=== PATIENT | female | born 1940 | race Caucasian/White ===

== ENCOUNTER 2020-10-30 13:12 | Emergency (ER) | payer OTHER, MEDICARE ==
[2020-10-30] MEDS ORDERED: Lidocaine 1% w/Epinephrine 1:100K 20 ML VIAL ONE (13:49)
[2020-10-30] MEDS ORDERED: Bacitracin 1 PK ONE (14:35)
== END 2020-10-30 14:52 | disposition home or self-care (01) ==
LOC: CSHERS 13:12
DX: S00.03XA Contusion of scalp, initial encounter (principal); S80.212A Abrasion, left knee, initial encounter; S80.211A Abrasion, right knee, initial encounter; I10 Essential (primary) hypertension; Z86.718 Personal history of other venous thrombosis and embolism; W01.0XXA Fall on same level from slipping, tripping and stumbling without subsequent striking against object, initial encounter
CPT/HCPCS: 12011; 70450; 72125

== ENCOUNTER 2021-07-05 11:22 | Inpatient (IN) | payer MEDICARE, OTHER ==
[2021-07-05 12:20] LABS: Anion Gap 15 mmol/L (10-20); BUN (Urea Nitrogen) 13 mg/dL (9.8-20.1); Calc. Creatinine Clearance 0 mL/min (70-130); Carbon Dioxide 25 mmol/L (23-31); Chloride 104 mmol/L (98-107); Potassium 3.3 mmol/L (3.5-5.1); Sodium 141 mmol/L (136-145)
[2021-07-05 12:21] LABS: ALT (SGPT) 17 U/L (8-55); AST (SGOT) 23 U/L (5-34); Albumin 3.8 g/dL (3.4-4.8); Alkaline Phosphatase 74 U/L (40-110); Bilirubin, Total 0.7 mg/dL (0.2-1.2); Calcium 9.4 mg/dL (7.8-10.44); Globulin 3.1 g/dL (2.4-3.5); Glucose 120 mg/dL (83-110); Protein, Total 6.9 g/dL (5.8-8.1)
[2021-07-05 12:39] LABS: #Basophils 0.1 10x3/uL (0.0-0.2); #Neutrophils 10.6 10x3/uL (1.5-8.4); %Basophils 0.5 % (0.0-2.0); %Eosinophils 0.2 % (0.0-6.0); %Lymphocytes 10.3 % (18.0-47.0); %Monocytes 7.3 % (0.0-10.0); %Neutrophils 81.2 % (40.0-75.0); Hemoglobin 11.3 g/dL (12.0-15.5); Mean Corpuscular HGB CONC 32.2 g/dL (32.0-36.0); Mean Corpuscular Hemoglobin 29.4 pg (27.0-33.0); Mean Corpuscular Volume 91.2 fl (81.6-98.3); Mean Platelet Volume 11.8 fl (7.4-10.4); Platelet Count 167 10x3/uL (150-450); RBC Distribution Width 14.6 % (11.5-14.5); Red Blood Cell (RBC) Count 3.85 10x6/uL (3.90-5.03)
[2021-07-05 12:42] LABS: CKMB 2.5 ng/mL (0-6.6)
[2021-07-05] MEDS ORDERED: Aspirin 325 MG TAB ONE (13:15)
[2021-07-05] MEDS ORDERED: Aspirin Chewable 81 MG TAB ONE (13:19)
[2021-07-05] MEDS ORDERED: Acetaminophen 325 MG TAB PO PRN (14:21)
[2021-07-05] MEDS ORDERED: Acetaminophen 650 MG Suppository PR PRN (14:21)
[2021-07-05 14:23] LABS: SARS-CoV-2 NAA Rapid Test Not Detected (NotDetected)
[2021-07-05 15:24] LABS: Troponin I 0.323 ng/mL (< 0.028)
[2021-07-05 17:16] LABS: Troponin I 0.351 ng/mL (< 0.028)
[2021-07-05] MEDS ORDERED: Potassium Chloride 20 MEQ TAB PO SCH (18:00)
[2021-07-05] MEDS ORDERED: Furosemide 40 MG/4 ML VIAL SLOW IVP SCH (18:00)
[2021-07-05 18:02] VITALS: BMI 40.6
[2021-07-05] MEDS ORDERED: FLU VACC QS2021-22(65YR UP)/PF 240 MCG/0.7 ML SYRINGE IM ONE (18:15)
[2021-07-05] MEDS ORDERED: Atorvastatin Calcium 10 MG TAB PO SCH (21:00)
[2021-07-05] MEDS ORDERED: Pramipexole Di-HCl 0.25 MG TAB PO SCH (22:15)
[2021-07-06 05:13] LABS: #Basophils 0.1 10x3/uL (0.0-0.2); #Eosinphils 0.1 10x3/uL (0.0-0.5); #Monocytes 0.9 10x3/uL (0.0-1.1); #Neutrophils 5.2 10x3/uL (1.5-8.4); %Basophils 0.6 % (0.0-2.0); %Eosinophils 1.6 % (0.0-6.0); %Lymphocytes 21.2 % (18.0-47.0); %Monocytes 11.2 % (0.0-10.0); %Neutrophils 64.9 % (40.0-75.0); Mean Corpuscular HGB CONC 31.8 g/dL (32.0-36.0); Mean Corpuscular Hemoglobin 29.1 pg (27.0-33.0); Mean Corpuscular Volume 91.3 fl (81.6-98.3); Mean Platelet Volume 12.2 fl (7.4-10.4); Platelet Count 158 10x3/uL (150-450); RBC Distribution Width 14.7 % (11.5-14.5); Red Blood Cell (RBC) Count 3.44 10x6/uL (3.90-5.03); White Blood Cell (WBC) Count 8.1 10x3/uL (3.5-10.5)
[2021-07-06 05:28] LABS: Anion Gap 14 mmol/L (10-20); BUN (Urea Nitrogen) 12 mg/dL (9.8-20.1); Calc. Creatinine Clearance 57 mL/min (70-130); Calcium 8.9 mg/dL (7.8-10.44); Carbon Dioxide 29 mmol/L (23-31); Chloride 103 mmol/L (98-107); Glucose 101 mg/dL (83-110); Sodium 143 mmol/L (136-145)
[2021-07-06] MEDS ORDERED: Furosemide 40 MG/4 ML VIAL SLOW IVP SCH (06:00)
[2021-07-06] MEDS ORDERED: Aspirin 81 mg Enteric Coated Tablet PO SCH (09:00)
[2021-07-06] MEDS ORDERED: Communication Order-Pharmacy FS SCH (11:00)
[2021-07-06] MEDS ORDERED: ALPRAZolam 0.25 MG TAB PO PRN (11:07)
[2021-07-06] MEDS ORDERED: Carvedilol 3.125 MG TAB PO SCH ×2 (12:00→17:00)
[2021-07-06] MEDS ORDERED: Nitroglycerin 50 MG/250 ML BOT 250 ML ONE (13:15)
[2021-07-06] MEDS ORDERED: Heparin 10,000 UNITS/ 10 ML VIAL ONE (13:15)
[2021-07-06] MEDS ORDERED: Lidocaine 1% PF 5 ML VIAL ONE (13:15)
[2021-07-06] MEDS ORDERED: Adenosine 6 MG/2 ML VIAL ONE (13:16)
[2021-07-06] MEDS ORDERED: Verapamil 5 MG/2 ML VIAL ONE (13:16)
[2021-07-06] MEDS ORDERED: Bivalirudin 250 MG VIAL ONE (13:17)
[2021-07-06] MEDS ORDERED: Fentanyl 100 MCG/2 ML VIAL ONE (14:19)
[2021-07-06] MEDS ORDERED: Midazolam HCl 2 mg/2 ml Vial ONE (14:20)
[2021-07-06] MEDS ORDERED: Nitroglycerin 0.4 MG TAB (25 Tab Bottle) SL PRN (14:52)
[2021-07-06] MEDS ORDERED: Acetaminophen/Codeine 30-300mg Tablet PO PRN ×2 (14:52)
[2021-07-06] MEDS ORDERED: Sodium Chloride 0.9% 200 ML IV PRN (14:52)
[2021-07-06] MEDS ORDERED: Potassium Chloride 20 MEQ TAB PO SCH (15:00)
[2021-07-06 18:04] LABS: Magnesium 1.8 mg/dL (1.6-2.6)
[2021-07-06 19:55] VITALS: TEMP 98.5
[2021-07-06 19:59] VITALS: BP 145/61
[2021-07-06] MEDS ORDERED: Atorvastatin Calcium 40 MG TAB PO SCH (21:00)
[2021-07-06] MEDS ORDERED: Valsartan 80 MG TAB PO SCH (21:00)
[2021-07-06] MEDS ORDERED: Pramipexole Di-HCl 0.25 MG TAB PO SCH (21:00)
[2021-07-07] MEDS ORDERED: Potassium Chloride 20 MEQ TAB PO SCH (08:00)
[2021-07-07] MEDS ORDERED: Furosemide 20 MG TAB PO SCH (09:00)
[2021-07-07] MEDS ORDERED: Escitalopram Oxalate 10 mg Tablet PO SCH (09:00)
== END 2021-07-06 19:25 | disposition short-term general hospital (02) | DRG 280 ==
LOC: CSHERS 11:22 → CSHTELE 17:13
PROVIDERS: ADMIT Hospitalist; ATTEND Hospitalist
PROC: 4A023N7 Measurement of Cardiac Sampling and Pressure, Left Heart, Percutaneous Approach (ICD-10-PCS; principal; 2021-07-06)
PROC: B2111ZZ Fluoroscopy of Multiple Coronary Arteries using Low Osmolar Contrast (ICD-10-PCS; 2021-07-06)
PROC: B2151ZZ Fluoroscopy of Left Heart using Low Osmolar Contrast (ICD-10-PCS; 2021-07-06)
DX: I11.0 Hypertensive heart disease with heart failure (principal); I50.33 Acute on chronic diastolic (congestive) heart failure; I21.4 Non-ST elevation (NSTEMI) myocardial infarction; Z68.41 Body mass index [BMI] 40.0-44.9, adult; Z20.822 Contact with and (suspected) exposure to COVID-19; E87.6 Hypokalemia; I48.91 Unspecified atrial fibrillation; I25.10 Atherosclerotic heart disease of native coronary artery without angina pectoris; K21.9 Gastro-esophageal reflux disease without esophagitis; I73.9 Peripheral vascular disease, unspecified; E66.01 Morbid (severe) obesity due to excess calories; E78.5 Hyperlipidemia, unspecified; Z88.2 Allergy status to sulfonamides; Z79.82 Long term (current) use of aspirin; Z79.899 Other long term (current) drug therapy; Z86.718 Personal history of other venous thrombosis and embolism; Z95.5 Presence of coronary angioplasty implant and graft; Z90.49 Acquired absence of other specified parts of digestive tract; Z90.710 Acquired absence of both cervix and uterus; Z90.89 Acquired absence of other organs
CPT/HCPCS: 36415; 71045; 80048; 80053; 82553; 83735; 83880; 84443; 84484; 85025; 93005; 93459; 94760; 99152; 99153; J0153; J0583; J1644; J1940; J2250; J3010; U0002

== ENCOUNTER 2022-09-11 20:21 | Inpatient (IN) | payer MEDICARE, OTHER ==
[2022-09-11] MEDS ORDERED: Nitroglycerin 2% Ointment 1 INCH/1 GM Packet ONE (21:23)
[2022-09-11 21:28] LABS: #Eosinphils 0.1 10x3/uL (0.0-0.5); #Monocytes 0.8 10x3/uL (0.0-1.1); %Basophils 0.5 % (0.0-2.0); %Eosinophils 0.7 % (0.0-6.0); %Lymphocytes 19.7 % (18.0-47.0); %Monocytes 9.2 % (0.0-10.0); %Neutrophils 69.6 % (40.0-75.0); Hemoglobin 9.9 g/dL (12.0-15.5); Mean Corpuscular HGB CONC 31.9 g/dL (32.0-36.0); Mean Corpuscular Hemoglobin 32.4 pg (27.0-33.0); Mean Corpuscular Volume 101.3 fl (81.6-98.3); Platelet Count 161 10x3/uL (150-450); RBC Distribution Width 14.3 % (11.5-14.5); Red Blood Cell (RBC) Count 3.06 10x6/uL (3.90-5.03); White Blood Cell (WBC) Count 8.7 10x3/uL (3.5-10.5)
[2022-09-11 21:33] LABS: ALT (SGPT) 22 U/L (8-55); AST (SGOT) 34 U/L (5-34); Albumin 3.4 g/dL (3.4-4.8); Alkaline Phosphatase 83 U/L (40-110); Anion Gap 13 mmol/L (10-20); BUN (Urea Nitrogen) 25 mg/dL (9.8-20.1); Bilirubin, Total 0.3 mg/dL (0.2-1.2); Calc. Creatinine Clearance 0 mL/min (70-130); Calcium 8.7 mg/dL (7.8-10.44); Carbon Dioxide 22 mmol/L (23-31); Chloride 110 mmol/L (98-107); Estimated GFR 30; Globulin 2.3 g/dL (2.4-3.5); Glucose 96 mg/dL (83-110); Potassium 4.3 mmol/L (3.5-5.1); Protein, Total 5.7 g/dL (5.8-8.1); Sodium 141 mmol/L (136-145)
[2022-09-11] MEDS ORDERED: Furosemide 40 MG/4 ML VIAL ONE (22:16)
[2022-09-11] MEDS ORDERED: Guaifenesin DM 100-10/5 ML UDCUP PO PRN (22:52)
[2022-09-11] MEDS ORDERED: Senokot S 8.6-50 MG TAB PO PRN (22:52)
[2022-09-11] MEDS ORDERED: Calcium Carbonate 500 MG ChewTAB PO PRN (22:52)
[2022-09-11] MEDS ORDERED: Ondansetron PF 4 MG/2 ML Vial IVP PRN (22:52)
[2022-09-11] MEDS ORDERED: Melatonin 3 MG TAB PO PRN (22:55)
[2022-09-12 01:21] LABS: SARS-CoV-2 NAA Rapid Test Not Detected (NotDetected)
[2022-09-12 03:52] LABS: Anion Gap 13 mmol/L (10-20); BUN (Urea Nitrogen) 28 mg/dL (9.8-20.1); Calc. Creatinine Clearance 29 mL/min (70-130); Calcium 8.9 mg/dL (7.8-10.44); Carbon Dioxide 24 mmol/L (23-31); Chloride 109 mmol/L (98-107); Estimated GFR 33; Glucose 89 mg/dL (83-110); Potassium 3.9 mmol/L (3.5-5.1); Sodium 142 mmol/L (136-145)
[2022-09-12 03:53] LABS: #Basophils 0.1 10x3/uL (0.0-0.2); #Eosinphils 0.1 10x3/uL (0.0-0.5); #Monocytes 0.9 10x3/uL (0.0-1.1); %Basophils 0.6 % (0.0-2.0); %Eosinophils 0.7 % (0.0-6.0); %Lymphocytes 19.9 % (18.0-47.0); %Monocytes 9.8 % (0.0-10.0); %Neutrophils 68.8 % (40.0-75.0); Hemoglobin 9.5 g/dL (12.0-15.5); Mean Corpuscular HGB CONC 32.5 g/dL (32.0-36.0); Mean Corpuscular Hemoglobin 32.5 pg (27.0-33.0); Mean Platelet Volume 11.7 fl (7.4-10.4); Platelet Count 158 10x3/uL (150-450); RBC Distribution Width 14.3 % (11.5-14.5); Red Blood Cell (RBC) Count 2.92 10x6/uL (3.90-5.03); White Blood Cell (WBC) Count 8.7 10x3/uL (3.5-10.5)
[2022-09-12] MEDS ORDERED: Furosemide 20 MG/2 ML VIAL SLOW IVP SCH (06:00)
[2022-09-12] MEDS ORDERED: hydrALAZINE 20 MG/ML VIAL SLOW IVP PRN (08:23)
[2022-09-12] MEDS ORDERED: Lisinopril 5 MG TAB PO SCH (09:00)
[2022-09-12] MEDS: Carvedilol 6.25 MG TAB PO SCH ×2 (10:09→18:04)
[2022-09-12] MEDS: Furosemide 40 MG TAB PO SCH ×2 (10:10→13:40)
[2022-09-12] MEDS: Ferrous Sulfate 325 MG TAB PO SCH ×2 (10:10→18:04)
[2022-09-12] MEDS: Cyanocobalamin (Vitamin B-12) 1,000 MCG TAB PO SCH (10:10)
[2022-09-12] MEDS: hydrALAZINE 25 MG TAB PO SCH ×2 (10:10→20:30)
[2022-09-12] MEDS: Escitalopram Oxalate 20 mg Tablet PO SCH (10:11)
[2022-09-12] MEDS: Polyethylene Glycol 3350 17 GM Packet PO SCH (10:11)
[2022-09-12] MEDS: Folic Acid 1 MG TAB PO SCH (10:11)
[2022-09-12] MEDS: Clopidogrel Bisulfate 75 MG TAB PO SCH (10:11)
[2022-09-12] MEDS ORDERED: Amoxicillin/Potassium Clav 875 MG TAB PO SCH (11:15)
[2022-09-12] MEDS: ALPRAZolam 0.25 MG TAB PO PRN (20:30)
[2022-09-12] MEDS: Pramipexole Di-HCl 1 MG TAB PO SCH (20:30)
[2022-09-12] MEDS: Acetaminophen 325 MG TAB PO PRN (20:31)
[2022-09-12] MEDS: Amoxicillin/Potassium Clav 500 MG TAB PO SCH (20:31)
[2022-09-12] MEDS: Atorvastatin Calcium 40 MG TAB PO SCH (20:31)
[2022-09-13 05:23] LABS: #Eosinphils 0.1 10x3/uL (0.0-0.5); #Monocytes 0.7 10x3/uL (0.0-1.1); %Basophils 0.5 % (0.0-2.0); %Eosinophils 1.2 % (0.0-6.0); %Lymphocytes 21.5 % (18.0-47.0); %Monocytes 9.3 % (0.0-10.0); %Neutrophils 67.2 % (40.0-75.0); Anion Gap 15 mmol/L (10-20); BUN (Urea Nitrogen) 42 mg/dL (9.8-20.1); Calc. Creatinine Clearance 26 mL/min (70-130); Calcium 8.8 mg/dL (7.8-10.44); Carbon Dioxide 23 mmol/L (23-31); Chloride 105 mmol/L (98-107); Estimated GFR 29; Glucose 91 mg/dL (83-110); Mean Corpuscular HGB CONC 33.1 g/dL (32.0-36.0); Mean Corpuscular Hemoglobin 32.6 pg (27.0-33.0); Mean Corpuscular Volume 98.4 fl (81.6-98.3); Mean Platelet Volume 12.2 fl (7.4-10.4); Platelet Count 139 10x3/uL (150-450); Potassium 4.1 mmol/L (3.5-5.1); RBC Distribution Width 14.1 % (11.5-14.5); Red Blood Cell (RBC) Count 3.07 10x6/uL (3.90-5.03); Sodium 139 mmol/L (136-145); White Blood Cell (WBC) Count 7.4 10x3/uL (3.5-10.5)
[2022-09-13 06:35] VITALS: BMI 34.1
[2022-09-13] MEDS: Carvedilol 6.25 MG TAB PO SCH ×2 (08:44→18:16)
[2022-09-13] MEDS: hydrALAZINE 25 MG TAB PO SCH ×3 (08:45→21:28)
[2022-09-13] MEDS: Furosemide 40 MG TAB PO SCH ×2 (08:45→15:44)
[2022-09-13] MEDS: Escitalopram Oxalate 20 mg Tablet PO SCH (08:45)
[2022-09-13] MEDS: Cyanocobalamin (Vitamin B-12) 1,000 MCG TAB PO SCH (08:45)
[2022-09-13] MEDS: Clopidogrel Bisulfate 75 MG TAB PO SCH (08:45)
[2022-09-13] MEDS: Folic Acid 1 MG TAB PO SCH (08:45)
[2022-09-13] MEDS: Ferrous Sulfate 325 MG TAB PO SCH ×2 (08:45→18:16)
[2022-09-13] MEDS: Amoxicillin/Potassium Clav 500 MG TAB PO SCH ×2 (08:45→21:29)
[2022-09-13] MEDS: Polyethylene Glycol 3350 17 GM Packet PO SCH (08:46)
[2022-09-13] MEDS ORDERED: Amlodipine 5 MG TAB PO SCH (09:00)
[2022-09-13] MEDS: Pramipexole Di-HCl 1 MG TAB PO SCH (21:26)
[2022-09-13] MEDS: Acetaminophen 325 MG TAB PO PRN (21:28)
[2022-09-13] MEDS: Atorvastatin Calcium 40 MG TAB PO SCH (21:29)
[2022-09-13] MEDS: ALPRAZolam 0.25 MG TAB PO PRN (23:06)
[2022-09-14 06:25] LABS: #Basophils 0.1 10x3/uL (0.0-0.2); #Eosinphils 0.1 10x3/uL (0.0-0.5); #Monocytes 0.7 10x3/uL (0.0-1.1); #Neutrophils 5.1 10x3/uL (1.5-8.4); %Basophils 0.6 % (0.0-2.0); %Eosinophils 1.4 % (0.0-6.0); %Lymphocytes 23.9 % (18.0-47.0); %Monocytes 9.2 % (0.0-10.0); %Neutrophils 64.6 % (40.0-75.0); Hemoglobin 10.4 g/dL (12.0-15.5); Mean Corpuscular HGB CONC 32.4 g/dL (32.0-36.0); Mean Corpuscular Hemoglobin 32.2 pg (27.0-33.0); Mean Corpuscular Volume 99.4 fl (81.6-98.3); Mean Platelet Volume 12.5 fl (7.4-10.4); Platelet Count 136 10x3/uL (150-450); RBC Distribution Width 14.2 % (11.5-14.5); Red Blood Cell (RBC) Count 3.23 10x6/uL (3.90-5.03); White Blood Cell (WBC) Count 7.9 10x3/uL (3.5-10.5)
[2022-09-14 06:40] LABS: ALT (SGPT) 15 U/L (8-55); AST (SGOT) 26 U/L (5-34); Albumin 3.3 g/dL (3.4-4.8); Alkaline Phosphatase 76 U/L (40-110); Anion Gap 16 mmol/L (10-20); BUN (Urea Nitrogen) 46 mg/dL (9.8-20.1); Bilirubin, Total 0.3 mg/dL (0.2-1.2); Calc. Creatinine Clearance 25 mL/min (70-130); Calcium 9.1 mg/dL (7.8-10.44); Carbon Dioxide 22 mmol/L (23-31); Chloride 107 mmol/L (98-107); Estimated GFR 28; Globulin 2.8 g/dL (2.4-3.5); Glucose 92 mg/dL (83-110); Magnesium 2.3 mg/dL (1.6-2.6); Potassium 3.9 mmol/L (3.5-5.1); Protein, Total 6.1 g/dL (5.8-8.1); Sodium 141 mmol/L (136-145)
[2022-09-14 06:42] LABS: Phosphorus 3.3 mg/dL (2.3-4.7)
[2022-09-14] MEDS: Clopidogrel Bisulfate 75 MG TAB PO SCH (08:27)
[2022-09-14] MEDS: Carvedilol 6.25 MG TAB PO SCH (08:27)
[2022-09-14] MEDS: hydrALAZINE 25 MG TAB PO SCH (08:27)
[2022-09-14] MEDS: Furosemide 40 MG TAB PO SCH (08:27)
[2022-09-14] MEDS: Folic Acid 1 MG TAB PO SCH (08:28)
[2022-09-14] MEDS: Escitalopram Oxalate 20 mg Tablet PO SCH (08:28)
[2022-09-14] MEDS: Ferrous Sulfate 325 MG TAB PO SCH (08:28)
[2022-09-14] MEDS: Cyanocobalamin (Vitamin B-12) 1,000 MCG TAB PO SCH (08:28)
[2022-09-14] MEDS: Polyethylene Glycol 3350 17 GM Packet PO SCH (08:29)
[2022-09-14] MEDS: Amoxicillin/Potassium Clav 500 MG TAB PO SCH (08:29)
[2022-09-14] MEDS: Acetaminophen 325 MG TAB PO PRN (08:40)
[2022-09-14] MEDS ORDERED: Amlodipine 10 MG TAB PO SCH (09:00)
[2022-09-14 11:58] VITALS: TEMP 97.6
[2022-09-14] MEDS ORDERED: Albumin 25% 25 GM/100 ML BOT IVPB SCH (12:00)
[2022-09-14 13:47] VITALS: BP 151/52
[2022-09-15] MEDS ORDERED: Furosemide 40 MG TAB PO SCH (07:30)
== END 2022-09-14 15:15 | DRG 291 ==
LOC: CSHERS 20:21 → CSHTELE 23:30
PROVIDERS: ADMIT Student in an Organized Health Care Education/Training Program; ATTEND Internal Medicine
DX: I13.0 Hypertensive heart and chronic kidney disease with heart failure and stage 1 through stage 4 chronic kidney disease, or unspecified chronic kidney disease (principal); I50.43 Acute on chronic combined systolic (congestive) and diastolic (congestive) heart failure; N17.0 Acute kidney failure with tubular necrosis; I73.9 Peripheral vascular disease, unspecified; K21.9 Gastro-esophageal reflux disease without esophagitis; G25.81 Restless legs syndrome; I48.0 Paroxysmal atrial fibrillation; I16.0 Hypertensive urgency; E03.9 Hypothyroidism, unspecified; D63.1 Anemia in chronic kidney disease; N18.30 Chronic kidney disease, stage 3 unspecified; F41.9 Anxiety disorder, unspecified; F32.A Depression, unspecified; Z95.5 Presence of coronary angioplasty implant and graft; Z95.1 Presence of aortocoronary bypass graft; Z98.890 Other specified postprocedural states; Z79.899 Other long term (current) drug therapy; Z88.2 Allergy status to sulfonamides; Z88.8 Allergy status to other drugs, medicaments and biological substances; Z95.820 Peripheral vascular angioplasty status with implants and grafts; Z90.710 Acquired absence of both cervix and uterus; Z90.89 Acquired absence of other organs; Z82.49 Family history of ischemic heart disease and other diseases of the circulatory system; Z90.49 Acquired absence of other specified parts of digestive tract; Z86.718 Personal history of other venous thrombosis and embolism; Z20.822 Contact with and (suspected) exposure to COVID-19
CPT/HCPCS: 36415; 71045; 76770; 80048; 80053; 83735; 83880; 84100; 84443; 84484; 85025; 93005; 93306; 93970; 96374; J1650; J1940; P9047; U0002

== ENCOUNTER 2022-09-29 15:27 | Inpatient (IN) | payer OTHER ==
[2022-09-29 16:48] LABS: #Eosinphils 0.1 10x3/uL (0.0-0.5); #Monocytes 0.5 10x3/uL (0.0-1.1); #Neutrophils 5.1 10x3/uL (1.5-8.4); %Basophils 0.6 % (0.0-2.0); %Eosinophils 0.9 % (0.0-6.0); %Monocytes 7.7 % (0.0-10.0); %Neutrophils 74.4 % (40.0-75.0); Hemoglobin 10.1 g/dL (12.0-15.5); Mean Corpuscular HGB CONC 32.2 g/dL (32.0-36.0); Mean Corpuscular Hemoglobin 32.6 pg (27.0-33.0); Mean Corpuscular Volume 101.3 fl (81.6-98.3); Mean Platelet Volume 13.1 fl (7.4-10.4); Platelet Count 114 10x3/uL (150-450); RBC Distribution Width 14.6 % (11.5-14.5); White Blood Cell (WBC) Count 6.9 10x3/uL (3.5-10.5)
[2022-09-29 16:59] LABS: ALT (SGPT) 25 U/L (8-55); AST (SGOT) 34 U/L (5-34); Albumin 3.8 g/dL (3.4-4.8); Alkaline Phosphatase 76 U/L (40-110); Anion Gap 18 mmol/L (10-20); BUN (Urea Nitrogen) 42 mg/dL (9.8-20.1); Bilirubin, Total 0.3 mg/dL (0.2-1.2); Calc. Creatinine Clearance 0 mL/min (70-130); Calcium 9.1 mg/dL (7.8-10.44); Carbon Dioxide 20 mmol/L (23-31); Chloride 109 mmol/L (98-107); Estimated GFR 21; Globulin 3.1 g/dL (2.4-3.5); Glucose 123 mg/dL (83-110); Magnesium 2.6 mg/dL (1.6-2.6); Potassium 5.5 mmol/L (3.5-5.1); Protein, Total 6.9 g/dL (5.8-8.1); Sodium 141 mmol/L (136-145)
[2022-09-29 17:38] LABS: Bilirubin Neg (Negative); Blood, Urine Negative (Negative); Clarity Clear (Clear); Glucose, Urine (Dipstick) Normal (Negative); Ketone, Urine Negative (Negative); Leukocyte Negative (Negative); Nitrite Negative (Negative); Protein, Urine (Dipstick) Negative (Neg-Trace); Urobilinogen Normal mg/dL (Less than 2)
[2022-09-29] MEDS ORDERED: Calcium Carbonate 500 MG ChewTAB PO PRN (20:16)
[2022-09-29] MEDS ORDERED: Nitroglycerin 0.4 MG TAB (25 Tab Bottle) SL PRN (20:16)
[2022-09-29 20:38] LABS: Hemoglobin 10.2 g/dL (12.0-15.5); Platelet Count 122 10x3/uL (150-450)
[2022-09-29 20:56] LABS: Troponin I 0.024 ng/mL (< 0.028)
[2022-09-29] MEDS ORDERED: ACETAMINOPHEN 650 MG PO SCH (21:00)
[2022-09-29] MEDS ORDERED: Sodium Chloride 0.9% 1,000 ML IV SCH (21:00)
[2022-09-29] MEDS: Acetaminophen 325 MG TAB PO PRN (21:05)
[2022-09-29] MEDS: Pramipexole Di-HCl 0.25 MG TAB PO SCH (21:05)
[2022-09-29] MEDS: Atorvastatin Calcium 40 MG TAB PO SCH (21:06)
[2022-09-29] MEDS: hydrALAZINE 25 MG TAB PO SCH (21:06)
[2022-09-29] MEDS: ALPRAZolam 0.25 MG TAB PO SCH (21:07)
[2022-09-29] MEDS: Melatonin 3 MG TAB PO PRN (21:07)
[2022-09-29 21:09] VITALS: BMI 33.0
[2022-09-29] MEDS ORDERED: Heparin 10,000 UNITS/ 10 ML VIAL SLOW IVP SCH (22:00)
[2022-09-29] MEDS: Heparin 25,000 units/D5W 500 ML IVPB SCH (23:02)
[2022-09-30 00:20] LABS: Troponin I 0.028 ng/mL (< 0.028)
[2022-09-30 02:45] LABS: #Eosinphils 0.1 10x3/uL (0.0-0.5); #Monocytes 0.7 10x3/uL (0.0-1.1); %Basophils 0.5 % (0.0-2.0); %Eosinophils 1.3 % (0.0-6.0); %Lymphocytes 20.3 % (18.0-47.0); %Monocytes 9.8 % (0.0-10.0); %Neutrophils 67.8 % (40.0-75.0); Hemoglobin 9.1 g/dL (12.0-15.5); Mean Corpuscular HGB CONC 32.3 g/dL (32.0-36.0); Mean Corpuscular Hemoglobin 32.6 pg (27.0-33.0); Mean Corpuscular Volume 101.1 fl (81.6-98.3); Platelet Count 105 10x3/uL (150-450); RBC Distribution Width 14.5 % (11.5-14.5); Red Blood Cell (RBC) Count 2.79 10x6/uL (3.90-5.03); White Blood Cell (WBC) Count 7.4 10x3/uL (3.5-10.5)
[2022-09-30 02:53] LABS: Anion Gap 14 mmol/L (10-20); BUN (Urea Nitrogen) 42 mg/dL (9.8-20.1); Calc. Creatinine Clearance 22 mL/min (70-130); Calcium 8.7 mg/dL (7.8-10.44); Carbon Dioxide 22 mmol/L (23-31); Chloride 111 mmol/L (98-107); Estimated GFR 24; Glucose 113 mg/dL (83-110); Sodium 143 mmol/L (136-145)
[2022-09-30 03:11] LABS: Iron 55 ug/dL (50-170); Iron Binding Capacity, Total 220 mcg/dL (265-497)
[2022-09-30 03:12] LABS: Thyroid Stimulating Hormone 1.7034 uIU/mL (0.35-4.94)
[2022-09-30 03:50] LABS: PTT Greater than 139.0 sec (22.0-33.0)
[2022-09-30 04:34] LABS: Platelet Morphology Comment Appears Decreased
[2022-09-30 04:35] LABS: Large Platelets SLIGHT
[2022-09-30 04:36] LABS: Anisocytosis SLIGHT = 6-15 cells (100X) (0-5/hpf); Macrocytosis SLIGHT = 6-15 cells (100X) (0-5/hpf); Microcytosis SLIGHT = 6-15 cells (100X) (0-5/hpf)
[2022-09-30] MEDS ORDERED: traMADol HCl 50 MG TAB PO SCH (05:00)
[2022-09-30 05:34] LABS: PTT Greater than 139.0 sec (22.0-33.0)
[2022-09-30] MEDS: HYDROcodone/Acetaminophen 5/325 mg Tablet PO PRN ×3 (10:06→20:36)
[2022-09-30] MEDS: Fluticasone Propionate Nasal Spray 16 gm Bottle NASAL SCH (10:06)
[2022-09-30] MEDS: hydrALAZINE 25 MG TAB PO SCH ×3 (10:07→20:36)
[2022-09-30] MEDS: Primidone 50 MG TAB PO SCH (10:07)
[2022-09-30] MEDS: Folic Acid 1 MG TAB PO SCH (10:08)
[2022-09-30] MEDS: Carvedilol 6.25 MG TAB PO SCH ×2 (10:08→17:14)
[2022-09-30] MEDS: Amlodipine 10 MG TAB PO SCH (10:09)
[2022-09-30] MEDS: Ferrous Sulfate 325 MG TAB PO SCH ×2 (10:09→19:41)
[2022-09-30] MEDS: Clopidogrel Bisulfate 75 MG TAB PO SCH (10:09)
[2022-09-30] MEDS: Cyanocobalamin (Vitamin B-12) 1,000 MCG TAB PO SCH (10:09)
[2022-09-30] MEDS: Polyethylene Glycol 3350 17 GM Packet PO SCH (11:29)
[2022-09-30] MEDS: Escitalopram Oxalate 10 mg Tablet PO SCH (12:24)
[2022-09-30] MEDS: ALPRAZolam 0.25 MG TAB PO SCH (20:35)
[2022-09-30] MEDS: Melatonin 3 MG TAB PO PRN (20:36)
[2022-09-30] MEDS: Pramipexole Di-HCl 0.25 MG TAB PO SCH (20:36)
[2022-09-30] MEDS: Atorvastatin Calcium 40 MG TAB PO SCH (20:36)
[2022-10-01 04:46] LABS: Hemoglobin 9.2 g/dL (12.0-15.5); Mean Corpuscular HGB CONC 31.9 g/dL (32.0-36.0); Mean Corpuscular Hemoglobin 32.6 pg (27.0-33.0); Mean Corpuscular Volume 102.1 fl (81.6-98.3); Platelet Count 109 10x3/uL (150-450); RBC Distribution Width 14.6 % (11.5-14.5); Red Blood Cell (RBC) Count 2.82 10x6/uL (3.90-5.03); White Blood Cell (WBC) Count 6.5 10x3/uL (3.5-10.5)
[2022-10-01 04:58] LABS: Anion Gap 13 mmol/L (10-20); BUN (Urea Nitrogen) 36 mg/dL (9.8-20.1); Calc. Creatinine Clearance 26 mL/min (70-130); Calcium 8.9 mg/dL (7.8-10.44); Carbon Dioxide 22 mmol/L (23-31); Chloride 111 mmol/L (98-107); Estimated GFR 29; Glucose 87 mg/dL (83-110); Sodium 142 mmol/L (136-145)
[2022-10-01] MEDS: HYDROcodone/Acetaminophen 5/325 mg Tablet PO PRN ×4 (06:16→22:11)
[2022-10-01] MEDS ORDERED: SELENIUM SULFIDE TOP SCH (09:00)
[2022-10-01] MEDS: Carvedilol 6.25 MG TAB PO SCH ×2 (09:20→17:08)
[2022-10-01] MEDS: hydrALAZINE 25 MG TAB PO SCH ×3 (10:00→22:10)
[2022-10-01] MEDS: Ferrous Sulfate 325 MG TAB PO SCH ×2 (10:03→17:08)
[2022-10-01] MEDS: Primidone 50 MG TAB PO SCH (10:03)
[2022-10-01] MEDS: Amlodipine 10 MG TAB PO SCH (10:04)
[2022-10-01] MEDS: Folic Acid 1 MG TAB PO SCH (10:04)
[2022-10-01] MEDS: Cyanocobalamin (Vitamin B-12) 1,000 MCG TAB PO SCH (10:05)
[2022-10-01] MEDS: Escitalopram Oxalate 10 mg Tablet PO SCH (10:05)
[2022-10-01] MEDS: Clopidogrel Bisulfate 75 MG TAB PO SCH (10:05)
[2022-10-01] MEDS: Fluticasone Propionate Nasal Spray 16 gm Bottle NASAL SCH (10:06)
[2022-10-01] MEDS: Polyethylene Glycol 3350 17 GM Packet PO SCH (10:07)
[2022-10-01] MEDS: Heparin 25,000 units/D5W 500 ML IVPB SCH (18:50)
[2022-10-01 20:20] LABS: Hemoglobin 9.4 g/dL (12.0-15.5); Platelet Count 121 10x3/uL (150-450)
[2022-10-01] MEDS: ALPRAZolam 0.25 MG TAB PO SCH (22:09)
[2022-10-01] MEDS: Melatonin 3 MG TAB PO PRN (22:10)
[2022-10-01] MEDS: Atorvastatin Calcium 40 MG TAB PO SCH (22:10)
[2022-10-01] MEDS: Pramipexole Di-HCl 0.25 MG TAB PO SCH (22:11)
[2022-10-02] MEDS: HYDROcodone/Acetaminophen 5/325 mg Tablet PO PRN ×2 (03:14→08:46)
[2022-10-02 04:50] LABS: Anion Gap 13 mmol/L (10-20); BUN (Urea Nitrogen) 38 mg/dL (9.8-20.1); Calc. Creatinine Clearance 26 mL/min (70-130); Calcium 8.9 mg/dL (7.8-10.44); Carbon Dioxide 21 mmol/L (23-31); Chloride 110 mmol/L (98-107); Estimated GFR 29; Glucose 90 mg/dL (83-110); Potassium 4.6 mmol/L (3.5-5.1); Sodium 139 mmol/L (136-145)
[2022-10-02] MEDS: Fluticasone Propionate Nasal Spray 16 gm Bottle NASAL SCH (08:42)
[2022-10-02] MEDS: Primidone 50 MG TAB PO SCH (08:44)
[2022-10-02] MEDS: hydrALAZINE 25 MG TAB PO SCH ×3 (08:44→21:17)
[2022-10-02] MEDS: Escitalopram Oxalate 10 mg Tablet PO SCH (08:45)
[2022-10-02] MEDS: Folic Acid 1 MG TAB PO SCH (08:45)
[2022-10-02] MEDS: Cyanocobalamin (Vitamin B-12) 1,000 MCG TAB PO SCH (08:45)
[2022-10-02] MEDS: Ferrous Sulfate 325 MG TAB PO SCH ×2 (08:45→18:04)
[2022-10-02] MEDS: Amlodipine 10 MG TAB PO SCH (08:46)
[2022-10-02] MEDS: Clopidogrel Bisulfate 75 MG TAB PO SCH (08:46)
[2022-10-02] MEDS: Carvedilol 6.25 MG TAB PO SCH ×2 (08:46→18:04)
[2022-10-02] MEDS: Polyethylene Glycol 3350 17 GM Packet PO SCH (08:47)
[2022-10-02] MEDS: ALPRAZolam 0.25 MG TAB PO SCH (21:17)
[2022-10-02] MEDS: Apixaban 5 MG TAB PO SCH (21:17)
[2022-10-02] MEDS: Pramipexole Di-HCl 0.25 MG TAB PO SCH (21:18)
[2022-10-02] MEDS: Atorvastatin Calcium 40 MG TAB PO SCH (21:18)
[2022-10-03 04:20] LABS: Hemoglobin 9.1 g/dL (12.0-15.5); Mean Corpuscular Hemoglobin 32.4 pg (27.0-33.0); Mean Corpuscular Volume 101.1 fl (81.6-98.3); Platelet Count 93 10x3/uL (150-450); RBC Distribution Width 14.3 % (11.5-14.5); Red Blood Cell (RBC) Count 2.81 10x6/uL (3.90-5.03); White Blood Cell (WBC) Count 5.8 10x3/uL (3.5-10.5)
[2022-10-03 04:43] LABS: Anion Gap 16 mmol/L (10-20); BUN (Urea Nitrogen) 38 mg/dL (9.8-20.1); Calc. Creatinine Clearance 26 mL/min (70-130); Calcium 9.1 mg/dL (7.8-10.44); Carbon Dioxide 20 mmol/L (23-31); Chloride 109 mmol/L (98-107); Estimated GFR 29; Glucose 82 mg/dL (83-110); Potassium 4.9 mmol/L (3.5-5.1); Sodium 140 mmol/L (136-145)
[2022-10-03] MEDS: Escitalopram Oxalate 10 mg Tablet PO SCH (08:04)
[2022-10-03] MEDS: Cyanocobalamin (Vitamin B-12) 1,000 MCG TAB PO SCH (08:04)
[2022-10-03] MEDS: Carvedilol 6.25 MG TAB PO SCH (08:04)
[2022-10-03] MEDS: Primidone 50 MG TAB PO SCH (08:05)
[2022-10-03] MEDS: Folic Acid 1 MG TAB PO SCH (08:06)
[2022-10-03] MEDS: hydrALAZINE 25 MG TAB PO SCH ×3 (08:06→21:07)
[2022-10-03] MEDS: Amlodipine 10 MG TAB PO SCH (08:07)
[2022-10-03] MEDS: Clopidogrel Bisulfate 75 MG TAB PO SCH (08:07)
[2022-10-03] MEDS: Ferrous Sulfate 325 MG TAB PO SCH ×2 (08:07→15:32)
[2022-10-03] MEDS: Apixaban 5 MG TAB PO SCH ×2 (08:07→21:08)
[2022-10-03] MEDS: Polyethylene Glycol 3350 17 GM Packet PO SCH (08:08)
[2022-10-03] MEDS: Fluticasone Propionate Nasal Spray 16 gm Bottle NASAL SCH (08:18)
[2022-10-03] MEDS: HYDROcodone/Acetaminophen 5/325 mg Tablet PO PRN (18:48)
[2022-10-03] MEDS: Pramipexole Di-HCl 0.25 MG TAB PO SCH (21:08)
[2022-10-03] MEDS: ALPRAZolam 0.25 MG TAB PO SCH (21:08)
[2022-10-03] MEDS: Atorvastatin Calcium 40 MG TAB PO SCH (21:08)
[2022-10-04] MEDS: HYDROcodone/Acetaminophen 5/325 mg Tablet PO PRN (00:25)
[2022-10-04 04:01] LABS: #Eosinphils 0.1 10x3/uL (0.0-0.5); #Monocytes 0.7 10x3/uL (0.0-1.1); %Basophils 0.4 % (0.0-2.0); %Eosinophils 1.6 % (0.0-6.0); %Lymphocytes 15.6 % (18.0-47.0); %Monocytes 10.4 % (0.0-10.0); %Neutrophils 71.7 % (40.0-75.0); Hemoglobin 9.2 g/dL (12.0-15.5); Mean Corpuscular HGB CONC 32.9 g/dL (32.0-36.0); Mean Corpuscular Hemoglobin 33.2 pg (27.0-33.0); Mean Corpuscular Volume 101.1 fl (81.6-98.3); Mean Platelet Volume 13.3 fl (7.4-10.4); Platelet Count 98 10x3/uL (150-450); RBC Distribution Width 14.4 % (11.5-14.5); Red Blood Cell (RBC) Count 2.77 10x6/uL (3.90-5.03); White Blood Cell (WBC) Count 6.9 10x3/uL (3.5-10.5)
[2022-10-04 04:11] LABS: Anion Gap 14 mmol/L (10-20); BUN (Urea Nitrogen) 35 mg/dL (9.8-20.1); Calc. Creatinine Clearance 28 mL/min (70-130); Carbon Dioxide 22 mmol/L (23-31); Chloride 108 mmol/L (98-107); Estimated GFR 32; Glucose 88 mg/dL (83-110); Magnesium 2.7 mg/dL (1.6-2.6); Potassium 4.7 mmol/L (3.5-5.1); Sodium 139 mmol/L (136-145)
[2022-10-04] MEDS: Ferrous Sulfate 325 MG TAB PO SCH ×2 (08:08→17:01)
[2022-10-04] MEDS: Primidone 50 MG TAB PO SCH (08:08)
[2022-10-04] MEDS: Amlodipine 10 MG TAB PO SCH (08:08)
[2022-10-04] MEDS: Escitalopram Oxalate 10 mg Tablet PO SCH (08:08)
[2022-10-04] MEDS: Clopidogrel Bisulfate 75 MG TAB PO SCH (08:10)
[2022-10-04] MEDS: Folic Acid 1 MG TAB PO SCH (08:10)
[2022-10-04] MEDS: Cyanocobalamin (Vitamin B-12) 1,000 MCG TAB PO SCH (08:10)
[2022-10-04] MEDS: Apixaban 5 MG TAB PO SCH (08:10)
[2022-10-04] MEDS: Polyethylene Glycol 3350 17 GM Packet PO SCH (08:11)
[2022-10-04] MEDS: hydrALAZINE 25 MG TAB PO SCH ×3 (08:11→20:41)
[2022-10-04] MEDS: Acetaminophen 325 MG TAB PO PRN (08:11)
[2022-10-04] MEDS: Fluticasone Propionate Nasal Spray 16 gm Bottle NASAL SCH (08:18)
[2022-10-04] MEDS ORDERED: Furosemide 40 MG/4 ML VIAL SLOW IVP SCH (12:45)
[2022-10-04] MEDS: ALPRAZolam 0.25 MG TAB PO SCH (20:41)
[2022-10-04] MEDS: Atorvastatin Calcium 40 MG TAB PO SCH (20:41)
[2022-10-04] MEDS: Pramipexole Di-HCl 0.25 MG TAB PO SCH (20:42)
[2022-10-05 03:57] LABS: #Eosinphils 0.1 10x3/uL (0.0-0.5); #Monocytes 0.7 10x3/uL (0.0-1.1); #Neutrophils 4.8 10x3/uL (1.5-8.4); %Basophils 0.4 % (0.0-2.0); %Eosinophils 1.6 % (0.0-6.0); %Lymphocytes 19.3 % (18.0-47.0); %Monocytes 10.1 % (0.0-10.0); %Neutrophils 68.3 % (40.0-75.0); Hemoglobin 9.9 g/dL (12.0-15.5); INR-International Normal Ratio 1.1; Mean Corpuscular HGB CONC 31.8 g/dL (32.0-36.0); Mean Corpuscular Hemoglobin 32.6 pg (27.0-33.0); Mean Corpuscular Volume 102.3 fl (81.6-98.3); Mean Platelet Volume 13.1 fl (7.4-10.4); PTT 32.5 sec (22.0-33.0); Platelet Count 105 10x3/uL (150-450); Prothrombin Time 11.6 sec (9.5-12.1); RBC Distribution Width 14.5 % (11.5-14.5); Red Blood Cell (RBC) Count 3.04 10x6/uL (3.90-5.03)
[2022-10-05 03:59] LABS: Anion Gap 16 mmol/L (10-20); BUN (Urea Nitrogen) 35 mg/dL (9.8-20.1); Calc. Creatinine Clearance 28 mL/min (70-130); Calcium 9.4 mg/dL (7.8-10.44); Carbon Dioxide 22 mmol/L (23-31); Chloride 106 mmol/L (98-107); Estimated GFR 31; Glucose 89 mg/dL (83-110); Magnesium 2.4 mg/dL (1.6-2.6); Potassium 4.6 mmol/L (3.5-5.1); Sodium 139 mmol/L (136-145)
[2022-10-05] MEDS: Amlodipine 10 MG TAB PO SCH (08:17)
[2022-10-05] MEDS: Ferrous Sulfate 325 MG TAB PO SCH ×2 (08:17→16:16)
[2022-10-05] MEDS: Folic Acid 1 MG TAB PO SCH (08:18)
[2022-10-05] MEDS: Primidone 50 MG TAB PO SCH (08:18)
[2022-10-05] MEDS: Escitalopram Oxalate 10 mg Tablet PO SCH (08:18)
[2022-10-05] MEDS: Cyanocobalamin (Vitamin B-12) 1,000 MCG TAB PO SCH (08:18)
[2022-10-05] MEDS: Polyethylene Glycol 3350 17 GM Packet PO SCH (08:18)
[2022-10-05] MEDS: hydrALAZINE 25 MG TAB PO SCH ×3 (08:18→21:52)
[2022-10-05] MEDS: Fluticasone Propionate Nasal Spray 16 gm Bottle NASAL SCH (08:18)
[2022-10-05] MEDS ORDERED: Furosemide 40 MG/4 ML VIAL SLOW IVP SCH (09:00)
[2022-10-05] MEDS ORDERED: Lidocaine 1% (PF) 30 ML VIAL ONE (09:59)
[2022-10-05] MEDS ORDERED: Gentamicin 80 MG/2 ML VIAL ONE (09:59)
[2022-10-05] MEDS ORDERED: CEFAZOLIN 1 GM VIAL ONE (09:59)
[2022-10-05] MEDS ORDERED: Sodium Chloride 0.9% 2,000 ML ONE (10:00)
[2022-10-05] MEDS ORDERED: Fentanyl 100 MCG/2 ML VIAL ONE (10:36)
[2022-10-05] MEDS ORDERED: Midazolam HCl 2 mg/2 ml Vial ONE (10:37)
[2022-10-05] MEDS ORDERED: Iopamidol 300 61% 100 ML VIAL FS ONE (10:51)
[2022-10-05] MEDS: HYDROcodone/Acetaminophen 5/325 mg Tablet PO PRN ×3 (13:20→21:50)
[2022-10-05] MEDS: Atorvastatin Calcium 40 MG TAB PO SCH (21:51)
[2022-10-05] MEDS: Cefadroxil Hydrate 250 mg/5 ml Suspensio PO SCH (21:51)
[2022-10-05] MEDS: ALPRAZolam 0.25 MG TAB PO SCH (21:52)
[2022-10-05] MEDS: Pramipexole Di-HCl 0.25 MG TAB PO SCH (21:55)
[2022-10-06 04:24] LABS: #Eosinphils 0.1 10x3/uL (0.0-0.5); #Neutrophils 7.3 10x3/uL (1.5-8.4); %Basophils 0.4 % (0.0-2.0); %Eosinophils 0.6 % (0.0-6.0); %Lymphocytes 11.5 % (18.0-47.0); %Monocytes 10.9 % (0.0-10.0); %Neutrophils 76.3 % (40.0-75.0); Hemoglobin 9.4 g/dL (12.0-15.5); Mean Corpuscular HGB CONC 32.1 g/dL (32.0-36.0); Mean Corpuscular Hemoglobin 32.9 pg (27.0-33.0); Mean Corpuscular Volume 102.4 fl (81.6-98.3); Mean Platelet Volume 13.2 fl (7.4-10.4); Platelet Count 111 10x3/uL (150-450); RBC Distribution Width 14.5 % (11.5-14.5); Red Blood Cell (RBC) Count 2.86 10x6/uL (3.90-5.03); White Blood Cell (WBC) Count 9.6 10x3/uL (3.5-10.5)
[2022-10-06] MEDS: HYDROcodone/Acetaminophen 5/325 mg Tablet PO PRN ×3 (05:20→14:55)
[2022-10-06 05:26] LABS: Anion Gap 15 mmol/L (10-20); BUN (Urea Nitrogen) 31 mg/dL (9.8-20.1); Calc. Creatinine Clearance 32 mL/min (70-130); Calcium 9.1 mg/dL (7.8-10.44); Carbon Dioxide 22 mmol/L (23-31); Chloride 107 mmol/L (98-107); Estimated GFR 37; Glucose 98 mg/dL (83-110); Magnesium 2.4 mg/dL (1.6-2.6); Potassium 4.8 mmol/L (3.5-5.1); Sodium 139 mmol/L (136-145)
[2022-10-06] MEDS: Amlodipine 10 MG TAB PO SCH (09:33)
[2022-10-06] MEDS: Primidone 50 MG TAB PO SCH (09:33)
[2022-10-06] MEDS: Apixaban 5 MG TAB PO SCH ×2 (09:33→22:06)
[2022-10-06] MEDS: Cyanocobalamin (Vitamin B-12) 1,000 MCG TAB PO SCH (09:33)
[2022-10-06] MEDS: Folic Acid 1 MG TAB PO SCH (09:33)
[2022-10-06] MEDS: Cefadroxil Hydrate 250 mg/5 ml Suspensio PO SCH ×2 (09:33→22:04)
[2022-10-06] MEDS: Furosemide 40 MG/4 ML VIAL SLOW IVP SCH (09:33)
[2022-10-06] MEDS: Ferrous Sulfate 325 MG TAB PO SCH ×2 (09:33→17:22)
[2022-10-06] MEDS: hydrALAZINE 25 MG TAB PO SCH ×3 (09:33→22:05)
[2022-10-06] MEDS: Fluticasone Propionate Nasal Spray 16 gm Bottle NASAL SCH (09:34)
[2022-10-06] MEDS: Polyethylene Glycol 3350 17 GM Packet PO SCH (09:34)
[2022-10-06] MEDS: Escitalopram Oxalate 10 mg Tablet PO SCH (09:35)
[2022-10-06] MEDS: Atorvastatin Calcium 40 MG TAB PO SCH (22:06)
[2022-10-06] MEDS: Pramipexole Di-HCl 0.25 MG TAB PO SCH (22:06)
[2022-10-06] MEDS: ALPRAZolam 0.25 MG TAB PO SCH (22:06)
[2022-10-07] MEDS: HYDROcodone/Acetaminophen 5/325 mg Tablet PO PRN ×4 (02:12→23:00)
[2022-10-07 05:24] LABS: Anion Gap 13 mmol/L (10-20); BUN (Urea Nitrogen) 32 mg/dL (9.8-20.1); Calc. Creatinine Clearance 31 mL/min (70-130); Calcium 8.6 mg/dL (7.8-10.44); Carbon Dioxide 24 mmol/L (23-31); Chloride 105 mmol/L (98-107); Estimated GFR 36; Glucose 92 mg/dL (83-110); Magnesium 2.2 mg/dL (1.6-2.6); Potassium 4.1 mmol/L (3.5-5.1); Sodium 138 mmol/L (136-145)
[2022-10-07 05:28] LABS: #Eosinphils 0.1 10x3/uL (0.0-0.5); #Monocytes 1.1 10x3/uL (0.0-1.1); #Neutrophils 5.6 10x3/uL (1.5-8.4); %Basophils 0.4 % (0.0-2.0); %Eosinophils 1.5 % (0.0-6.0); %Lymphocytes 13.9 % (18.0-47.0); %Monocytes 13.9 % (0.0-10.0); %Neutrophils 69.9 % (40.0-75.0); Hemoglobin 8.1 g/dL (12.0-15.5); Mean Corpuscular HGB CONC 32.8 g/dL (32.0-36.0); Mean Corpuscular Hemoglobin 33.3 pg (27.0-33.0); Mean Corpuscular Volume 101.6 fl (81.6-98.3); Mean Platelet Volume 13.3 fl (7.4-10.4); Platelet Count 99 10x3/uL (150-450); RBC Distribution Width 14.3 % (11.5-14.5); Red Blood Cell (RBC) Count 2.43 10x6/uL (3.90-5.03)
[2022-10-07] MEDS: hydrALAZINE 25 MG TAB PO SCH ×3 (09:54→22:54)
[2022-10-07] MEDS: Ferrous Sulfate 325 MG TAB PO SCH ×2 (09:54→15:59)
[2022-10-07] MEDS: Cyanocobalamin (Vitamin B-12) 1,000 MCG TAB PO SCH (09:54)
[2022-10-07] MEDS: Escitalopram Oxalate 10 mg Tablet PO SCH (09:54)
[2022-10-07] MEDS: Furosemide 40 MG/4 ML VIAL SLOW IVP SCH (09:54)
[2022-10-07] MEDS: Primidone 50 MG TAB PO SCH (09:54)
[2022-10-07] MEDS: Apixaban 5 MG TAB PO SCH ×2 (09:54→22:55)
[2022-10-07] MEDS: Folic Acid 1 MG TAB PO SCH (09:54)
[2022-10-07] MEDS: Cefadroxil Hydrate 250 mg/5 ml Suspensio PO SCH ×2 (09:55→22:54)
[2022-10-07] MEDS: Polyethylene Glycol 3350 17 GM Packet PO SCH (09:55)
[2022-10-07] MEDS: Amlodipine 10 MG TAB PO SCH (09:55)
[2022-10-07] MEDS: Fluticasone Propionate Nasal Spray 16 gm Bottle NASAL SCH (09:55)
[2022-10-07] MEDS: Atorvastatin Calcium 40 MG TAB PO SCH (22:54)
[2022-10-07] MEDS: Pramipexole Di-HCl 0.25 MG TAB PO SCH (22:54)
[2022-10-07] MEDS: ALPRAZolam 0.25 MG TAB PO SCH (22:55)
[2022-10-08 05:50] LABS: INR-International Normal Ratio 1.2; PTT 36.5 sec (22.0-33.0); Prothrombin Time 12.9 sec (9.5-12.1)
[2022-10-08 05:52] LABS: #Eosinphils 0.1 10x3/uL (0.0-0.5); #Neutrophils 5.5 10x3/uL (1.5-8.4); %Basophils 0.4 % (0.0-2.0); %Eosinophils 1.7 % (0.0-6.0); %Lymphocytes 18.4 % (18.0-47.0); %Monocytes 12.4 % (0.0-10.0); %Neutrophils 66.9 % (40.0-75.0); Hemoglobin 8.1 g/dL (12.0-15.5); Mean Corpuscular HGB CONC 32.1 g/dL (32.0-36.0); Mean Corpuscular Hemoglobin 32.7 pg (27.0-33.0); Mean Corpuscular Volume 101.6 fl (81.6-98.3); Mean Platelet Volume 12.7 fl (7.4-10.4); Platelet Count 108 10x3/uL (150-450); RBC Distribution Width 14.1 % (11.5-14.5); Red Blood Cell (RBC) Count 2.48 10x6/uL (3.90-5.03); White Blood Cell (WBC) Count 8.2 10x3/uL (3.5-10.5)
[2022-10-08 05:56] LABS: Anion Gap 15 mmol/L (10-20); BUN (Urea Nitrogen) 34 mg/dL (9.8-20.1); Calc. Creatinine Clearance 32 mL/min (70-130); Calcium 8.7 mg/dL (7.8-10.44); Carbon Dioxide 24 mmol/L (23-31); Chloride 103 mmol/L (98-107); Estimated GFR 37; Glucose 84 mg/dL (83-110); Magnesium 2.2 mg/dL (1.6-2.6); Potassium 4.4 mmol/L (3.5-5.1); Sodium 138 mmol/L (136-145)
[2022-10-08] MEDS: Furosemide 40 MG/4 ML VIAL SLOW IVP SCH (08:36)
[2022-10-08] MEDS: Amlodipine 10 MG TAB PO SCH (08:36)
[2022-10-08] MEDS: Cyanocobalamin (Vitamin B-12) 1,000 MCG TAB PO SCH (08:36)
[2022-10-08] MEDS: Ferrous Sulfate 325 MG TAB PO SCH (08:36)
[2022-10-08] MEDS: Fluticasone Propionate Nasal Spray 16 gm Bottle NASAL SCH (08:36)
[2022-10-08] MEDS: Escitalopram Oxalate 10 mg Tablet PO SCH (08:36)
[2022-10-08] MEDS: hydrALAZINE 25 MG TAB PO SCH (08:36)
[2022-10-08] MEDS: Folic Acid 1 MG TAB PO SCH (08:36)
[2022-10-08] MEDS: Primidone 50 MG TAB PO SCH (08:36)
[2022-10-08] MEDS: Apixaban 5 MG TAB PO SCH (08:36)
[2022-10-08] MEDS: Polyethylene Glycol 3350 17 GM Packet PO SCH (08:37)
[2022-10-08] MEDS: Cefadroxil Hydrate 250 mg/5 ml Suspensio PO SCH (08:37)
[2022-10-08] MEDS: HYDROcodone/Acetaminophen 5/325 mg Tablet PO PRN (08:40)
[2022-10-08] MEDS ORDERED: Carvedilol 6.25 MG TAB PO SCH ×2 (08:45→17:00)
[2022-10-08] MEDS ORDERED: hydrALAZINE 25 MG TAB PO SCH (09:00)
[2022-10-08 11:39] VITALS: BP 128/60; TEMP 98
[2022-10-10] MEDS ORDERED: Apixaban 2.5 MG TAB PO SCH ×2 (09:00)
== END 2022-10-08 13:03 | DRG 242 ==
LOC: CSHERS 15:27 → CSHTELE 18:01 → OBSVTOIN 18:01 → CSHIMCU 10-04 14:26 → CSHTELE 10-05 16:06
PROVIDERS: ADMIT Internal Medicine; ATTEND Family Medicine
PROC: 0JH606Z Insertion of Pacemaker, Dual Chamber into Chest Subcutaneous Tissue and Fascia, Open Approach (ICD-10-PCS; principal; 2022-10-05)
PROC: 02H63JZ Insertion of Pacemaker Lead into Right Atrium, Percutaneous Approach (ICD-10-PCS; 2022-10-05)
PROC: 02HK3JZ Insertion of Pacemaker Lead into Right Ventricle, Percutaneous Approach (ICD-10-PCS; 2022-10-05)
DX: I44.2 Atrioventricular block, complete (principal); J96.01 Acute respiratory failure with hypoxia; I50.22 Chronic systolic (congestive) heart failure; N17.9 Acute kidney failure, unspecified; I42.9 Cardiomyopathy, unspecified; I13.0 Hypertensive heart and chronic kidney disease with heart failure and stage 1 through stage 4 chronic kidney disease, or unspecified chronic kidney disease; I82.411 Acute embolism and thrombosis of right femoral vein; R55 Syncope and collapse; I25.10 Atherosclerotic heart disease of native coronary artery without angina pectoris; E87.5 Hyperkalemia; E03.9 Hypothyroidism, unspecified; I35.0 Nonrheumatic aortic (valve) stenosis; D50.9 Iron deficiency anemia, unspecified; I73.9 Peripheral vascular disease, unspecified; G25.81 Restless legs syndrome; Z60.2 Problems related to living alone; K21.9 Gastro-esophageal reflux disease without esophagitis; N18.30 Chronic kidney disease, stage 3 unspecified; I44.7 Left bundle-branch block, unspecified; I65.23 Occlusion and stenosis of bilateral carotid arteries; E86.0 Dehydration; F41.9 Anxiety disorder, unspecified; D63.1 Anemia in chronic kidney disease; I49.5 Sick sinus syndrome; F32.A Depression, unspecified; Z95.1 Presence of aortocoronary bypass graft; Z86.718 Personal history of other venous thrombosis and embolism; Z95.5 Presence of coronary angioplasty implant and graft; Z90.49 Acquired absence of other specified parts of digestive tract; Z88.8 Allergy status to other drugs, medicaments and biological substances; Z88.2 Allergy status to sulfonamides; Z79.899 Other long term (current) drug therapy; Z79.02 Long term (current) use of antithrombotics/antiplatelets; Z90.710 Acquired absence of both cervix and uterus; Z90.89 Acquired absence of other organs; Z80.0 Family history of malignant neoplasm of digestive organs; Z80.1 Family history of malignant neoplasm of trachea, bronchus and lung; Z82.49 Family history of ischemic heart disease and other diseases of the circulatory system
CPT/HCPCS: 33208; 36415; 71045; 71250; 78451; 80048; 80053; 81003; 82607; 83540; 83550; 83735; 84443; 84484; 85014; 85018; 85025; 85027; 85049; 85379; 85610; 85730; 86850; 86900; 86901; 93005; 93010; 93880; 93970; 94760; 94762; 99152; 99153; A9540; C1785; C1898; J0690; J1580; J1644; J1940; J2001; J2250; J3010; J7050; Q9967

== ENCOUNTER 2022-10-16 17:23 | Emergency (ER) | payer OTHER ==
[2022-10-16 18:28] LABS: ALT (SGPT) 16 U/L (8-55); AST (SGOT) 30 U/L (5-34); Albumin 3.9 g/dL (3.4-4.8); Alkaline Phosphatase 75 U/L (40-110); Anion Gap 15 mmol/L (10-20); BUN (Urea Nitrogen) 26 mg/dL (9.8-20.1); Bilirubin, Total 0.4 mg/dL (0.2-1.2); Calc. Creatinine Clearance 0 mL/min (70-130); Calcium 9.4 mg/dL (7.8-10.44); Carbon Dioxide 24 mmol/L (23-31); Chloride 103 mmol/L (98-107); Estimated GFR 25; Glucose 106 mg/dL (83-110); Potassium 4.2 mmol/L (3.5-5.1); Protein, Total 6.9 g/dL (5.8-8.1); Sodium 138 mmol/L (136-145)
[2022-10-16 18:30] LABS: #Basophils 0.1 10x3/uL (0.0-0.2); #Eosinphils 0.2 10x3/uL (0.0-0.5); #Monocytes 0.9 10x3/uL (0.0-1.1); #Neutrophils 9.2 10x3/uL (1.5-8.4); %Basophils 0.7 % (0.0-2.0); %Eosinophils 1.7 % (0.0-6.0); %Lymphocytes 13.4 % (18.0-47.0); %Monocytes 7.5 % (0.0-10.0); Hemoglobin 9.5 g/dL (12.0-15.5); Mean Corpuscular HGB CONC 32.6 g/dL (32.0-36.0); Mean Corpuscular Hemoglobin 33.1 pg (27.0-33.0); Mean Corpuscular Volume 101.4 fl (81.6-98.3); Mean Platelet Volume 11.8 fl (7.4-10.4); Platelet Count 254 10x3/uL (150-450); RBC Distribution Width 14.7 % (11.5-14.5); Red Blood Cell (RBC) Count 2.87 10x6/uL (3.90-5.03); White Blood Cell (WBC) Count 12.1 10x3/uL (3.5-10.5)
[2022-10-16] MEDS ORDERED: Mag-Al Plus 1200 MG/1200 MG/120 MG/30 ML UDCUP ONE (18:43)
[2022-10-16] MEDS ORDERED: Lidocaine Viscous Sol 2% 15 ml UD Cup ONE (18:44)
== END 2022-10-16 20:17 ==
LOC: CSHERS 17:23
DX: K21.00 Gastro-esophageal reflux disease with esophagitis, without bleeding (principal); I12.9 Hypertensive chronic kidney disease with stage 1 through stage 4 chronic kidney disease, or unspecified chronic kidney disease; N18.9 Chronic kidney disease, unspecified
CPT/HCPCS: 71045; 80053; 85025; 93005; 94760

== ENCOUNTER 2023-12-13 15:15 | Inpatient (IN) | payer OTHER ==
[~2023-12-13 15:15] MED LIST: Iopamidol 370 76% 100 ML VIAL ONE
[2023-12-13 16:30] LABS: #Basophils 0.05 10x3/uL (0.0-0.2); #Eosinphils 0.16 10x3/uL (0.0-0.5); #Monocytes 0.76 10x3/uL (0.0-1.1); #Neutrophils 5.22 10x3/uL (1.5-8.4); %Basophils 0.7 % (0.0-2.0); %Eosinophils 2.1 % (0.0-6.0); %Lymphocytes 17.3 % (18.0-47.0); %Monocytes 10.1 % (0.0-10.0); %Neutrophils 69.4 % (40.0-75.0); Hemoglobin 11.1 g/dL (12.0-15.5); Mean Corpuscular HGB CONC 33.6 g/dL (32.0-36.0); Mean Corpuscular Volume 101.2 fL (81.6-98.3); Mean Platelet Volume 10.9 fL (7.4-10.4); Platelet Count 145 10x3/uL (150-450); RBC Distribution Width 13.8 % (11.5-14.5); Red Blood Cell (RBC) Count 3.26 10x6/uL (3.90-5.03); White Blood Cell (WBC) Count 7.5 10x3/uL (3.5-10.5)
[2023-12-13 16:43] LABS: ALT (SGPT) 33 U/L (8-55); AST (SGOT) 40 U/L (5-34); Albumin 3.1 g/dL (3.4-4.8); Alkaline Phosphatase 88 U/L (40-110); Anion Gap 13 mmol/L (10-20); BUN (Urea Nitrogen) 19 mg/dL (9.8-20.1); Bilirubin, Total 0.3 mg/dL (0.2-1.2); Calc. Creatinine Clearance 0 mL/min (70-130); Carbon Dioxide 22 mmol/L (23-31); Chloride 112 mmol/L (98-107); Estimated GFR 55; Glucose 112 mg/dL (83-110); Potassium 4.2 mmol/L (3.5-5.1); Protein, Total 6.1 g/dL (5.8-8.1)
[2023-12-13 16:45] LABS: Sodium 143 mmol/L (136-145)
[2023-12-13 17:00] LABS: D-Dimer Test 1.27 mcg/mL (0.19-0.50); PTT 25.1 sec (22.0-33.0); Prothrombin Time 11.1 sec (9.5-12.1)
[2023-12-13 17:12] LABS: Troponin I Less than 0.010 ng/mL (< 0.028)
[2023-12-13] MEDS ORDERED: Furosemide 40 MG (4 mL) VIAL ONE (18:45)
[2023-12-13] MEDS ORDERED: hydrALAZINE 20 MG/ML VIAL ONE (19:03)
[2023-12-13] MEDS ORDERED: Nitroglycerin 2% Ointment 1 INCH/1 GM Packet ONE (19:03)
[2023-12-13] MEDS ORDERED: Calcium Carbonate 500 MG ChewTAB PO PRN (19:22)
[2023-12-13] MEDS ORDERED: Senokot S 8.6-50 MG TAB PO PRN ×2 (19:22→19:29)
[2023-12-13] MEDS ORDERED: Ondansetron PF 4 MG/2 ML Vial IVP PRN (19:22)
[2023-12-13] MEDS ORDERED: Guaifenesin DM 100-10/5 ML UDCUP PO PRN (19:22)
[2023-12-13] MEDS ORDERED: hydrALAZINE 20 MG/ML VIAL SLOW IVP PRN (19:26)
[2023-12-13 20:05] LABS: Troponin I 0.016 ng/mL (< 0.028)
[2023-12-13] MEDS: Apixaban 5 MG TAB PO SCH (20:43)
[2023-12-13] MEDS: ALPRAZolam 0.25 MG TAB PO SCH (20:43)
[2023-12-13] MEDS: Atorvastatin Calcium 40 MG TAB PO SCH (21:05)
[2023-12-13] MEDS: Lisinopril 5 MG TAB PO SCH (21:09)
[2023-12-13] MEDS: Pramipexole Di-HCl 0.25 MG TAB PO SCH (21:09)
[2023-12-13 21:53] LABS: Bilirubin Neg (Negative); Blood, Urine 250 (Negative); Clarity Clear (Clear); Glucose, Urine (Dipstick) Normal (Negative); Ketone, Urine Negative (Negative); Leukocyte Negative (Negative); Nitrite Negative (Negative); Protein, Urine (Dipstick) Negative (Neg-Trace); Urobilinogen Normal mg/dL (Less than 2)
[2023-12-13 22:02] LABS: Bacteria/HPF 1+ HPF (None Seen); RBC/HPF Greater than 50 HPF (0-3); Squamous Epithelial 0-3 HPF (0-3); WBC/HPF 0-3 HPF (0-3)
[2023-12-13 23:06] LABS: Troponin I 0.036 ng/mL (< 0.028)
[2023-12-13 23:07] VITALS: BMI 36.7
[2023-12-13] MEDS: traMADol HCl 50 MG TAB PO PRN (23:15)
[2023-12-13] MEDS: Clotrimazole 1% Cream 15 GM TUBE TOP SCH (23:23)
[2023-12-14 02:25] LABS: Troponin I 0.043 ng/mL (< 0.028)
[2023-12-14 02:28] LABS: Anion Gap 13 mmol/L (10-20); BUN (Urea Nitrogen) 20 mg/dL (9.8-20.1); Calc. Creatinine Clearance 50 mL/min (70-130); Calcium 8.8 mg/dL (7.8-10.44); Carbon Dioxide 23 mmol/L (23-31); Chloride 109 mmol/L (98-107); Estimated GFR 57; Glucose 110 mg/dL (83-110); Magnesium 1.9 mg/dL (1.6-2.6); Sodium 141 mmol/L (136-145)
[2023-12-14] MEDS: Clotrimazole 1% Cream 15 GM TUBE TOP SCH (05:22)
[2023-12-14] MEDS: Furosemide 40 MG (4 mL) VIAL SLOW IVP SCH (05:45)
[2023-12-14 06:16] LABS: Troponin I 0.029 ng/mL (< 0.028)
[2023-12-14] MEDS: Ferrous Sulfate 325 MG TAB PO SCH (09:41)
[2023-12-14] MEDS: Pantoprazole DR 40 MG TAB PO SCH (09:41)
[2023-12-14] MEDS: Escitalopram Oxalate 10 mg Tablet PO SCH (09:41)
[2023-12-14] MEDS: Folic Acid 1 MG TAB PO SCH (09:42)
[2023-12-14] MEDS: Lisinopril 5 MG TAB PO SCH (09:42)
[2023-12-14] MEDS: Carvedilol 6.25 MG TAB PO SCH (09:42)
[2023-12-14] MEDS: Cyanocobalamin (Vitamin B-12) 1,000 MCG TAB PO SCH (09:42)
[2023-12-14] MEDS: Potassium Chloride 20 MEQ TAB PO SCH (09:42)
[2023-12-14] MEDS: Acetaminophen 325 MG TAB PO PRN (09:54)
[2023-12-14] MEDS: Polyethylene Glycol 3350 17 GM Packet PO SCH (09:57)
[2023-12-14] MEDS: hydrALAZINE 25 MG TAB PO SCH (14:38)
[2023-12-14] MEDS: cefTRIAXone\\ROCEPHIN 1 GM in Sodium Chloride 0.9% 100 ML IVPB SCH (17:18)
[2023-12-15 04:37] LABS: #Basophils 0.05 10x3/uL (0.0-0.2); #Eosinphils 0.09 10x3/uL (0.0-0.5); #Monocytes 1.13 10x3/uL (0.0-1.1); %Basophils 0.4 % (0.0-2.0); %Eosinophils 0.8 % (0.0-6.0); %Lymphocytes 15.3 % (18.0-47.0); %Monocytes 9.5 % (0.0-10.0); %Neutrophils 73.7 % (40.0-75.0); Hematocrit 33.7 % (34.9-44.5); Hemoglobin 10.9 g/dL (12.0-15.5); Mean Corpuscular HGB CONC 32.3 g/dL (32.0-36.0); Mean Corpuscular Hemoglobin 32.2 pg (27.0-33.0); Mean Corpuscular Volume 99.7 fL (81.6-98.3); Mean Platelet Volume 11.3 fL (7.4-10.4); Platelet Count 155 10x3/uL (150-450); RBC Distribution Width 14.2 % (11.5-14.5); Red Blood Cell (RBC) Count 3.38 10x6/uL (3.90-5.03); White Blood Cell (WBC) Count 11.9 10x3/uL (3.5-10.5)
[2023-12-15 04:42] LABS: Anion Gap 14 mmol/L (10-20); BUN (Urea Nitrogen) 22 mg/dL (9.8-20.1); Calc. Creatinine Clearance 37 mL/min (70-130); Calcium 8.8 mg/dL (7.8-10.44); Carbon Dioxide 23 mmol/L (23-31); Chloride 103 mmol/L (98-107); Estimated GFR 42; Glucose 97 mg/dL (83-110); Sodium 136 mmol/L (136-145)
[2023-12-15] MEDS: Escitalopram Oxalate 20 mg Tablet PO SCH (08:13)
[2023-12-15] MEDS: Sodium Chloride 0.9% 500 ML IV SCH (08:22)
[2023-12-15] MEDS: Furosemide 40 MG TAB PO SCH (13:15)
[2023-12-16 03:58] LABS: #Basophils 0.06 10x3/uL (0.0-0.2); #Eosinphils 0.16 10x3/uL (0.0-0.5); #Monocytes 1.09 10x3/uL (0.0-1.1); #Neutrophils 7.56 10x3/uL (1.5-8.4); %Basophils 0.6 % (0.0-2.0); %Eosinophils 1.5 % (0.0-6.0); %Lymphocytes 17.7 % (18.0-47.0); %Monocytes 10.1 % (0.0-10.0); %Neutrophils 69.8 % (40.0-75.0); Hematocrit 34.4 % (34.9-44.5); Hemoglobin 11.5 g/dL (12.0-15.5); Mean Corpuscular HGB CONC 33.4 g/dL (32.0-36.0); Mean Corpuscular Volume 98.6 fL (81.6-98.3); Mean Platelet Volume 11.6 fL (7.4-10.4); Platelet Count 157 10x3/uL (150-450); RBC Distribution Width 13.8 % (11.5-14.5); Red Blood Cell (RBC) Count 3.49 10x6/uL (3.90-5.03); White Blood Cell (WBC) Count 10.8 10x3/uL (3.5-10.5)
[2023-12-16 04:08] LABS: Anion Gap 17 mmol/L (10-20); BUN (Urea Nitrogen) 30 mg/dL (9.8-20.1); Calc. Creatinine Clearance 34 mL/min (70-130); Carbon Dioxide 23 mmol/L (23-31); Chloride 101 mmol/L (98-107); Estimated GFR 38; Glucose 94 mg/dL (83-110); Potassium 3.8 mmol/L (3.5-5.1); Sodium 137 mmol/L (136-145)
[2023-12-16 15:43] VITALS: BP 137/64; TEMP 97.8
[2023-12-16] MEDS ORDERED: Montelukast Sodium 10 mg Tablet PO SCH (21:00)
[2023-12-20] MEDS ORDERED: Apixaban 5 MG TAB PO SCH (21:00)
== END 2023-12-16 16:05 | DRG 291 ==
LOC: CSHERS 15:15 → CSHTELE 19:23
PROVIDERS: ADMIT Student in an Organized Health Care Education/Training Program; ATTEND Family Medicine
DX: I13.0 Hypertensive heart and chronic kidney disease with heart failure and stage 1 through stage 4 chronic kidney disease, or unspecified chronic kidney disease (principal); I50.43 Acute on chronic combined systolic (congestive) and diastolic (congestive) heart failure; J96.01 Acute respiratory failure with hypoxia; I82.411 Acute embolism and thrombosis of right femoral vein; N18.30 Chronic kidney disease, stage 3 unspecified; E78.5 Hyperlipidemia, unspecified; D63.1 Anemia in chronic kidney disease; E03.9 Hypothyroidism, unspecified; G25.81 Restless legs syndrome; I16.0 Hypertensive urgency; D53.9 Nutritional anemia, unspecified; I35.0 Nonrheumatic aortic (valve) stenosis; I73.9 Peripheral vascular disease, unspecified; F41.8 Other specified anxiety disorders; I48.0 Paroxysmal atrial fibrillation; I25.10 Atherosclerotic heart disease of native coronary artery without angina pectoris; I49.5 Sick sinus syndrome; R30.0 Dysuria; Z95.1 Presence of aortocoronary bypass graft; Z88.2 Allergy status to sulfonamides; Z88.8 Allergy status to other drugs, medicaments and biological substances; Z79.899 Other long term (current) drug therapy; Z90.49 Acquired absence of other specified parts of digestive tract; Z90.710 Acquired absence of both cervix and uterus; Z90.89 Acquired absence of other organs; Z95.0 Presence of cardiac pacemaker
CPT/HCPCS: 36415; 71045; 71275; 80048; 80053; 81001; 83735; 83880; 84443; 84484; 85025; 85379; 85610; 85730; 93005; 93306; 94760; 94762; 96374; 96375; J0360; J0696; J1940; J3490; J7030; Q9967

== ENCOUNTER 2024-03-20 17:24 | Emergency (ER) | payer OTHER ==
[2024-03-20 17:55] LABS: #Basophils 0.08 10x3/uL (0.0-0.2); #Eosinphils 0.17 10x3/uL (0.0-0.5); #Monocytes 0.92 10x3/uL (0.0-1.1); #Neutrophils 5.43 10x3/uL (1.5-8.4); %Lymphocytes 20.4 % (18.0-47.0); %Neutrophils 64.9 % (40.0-75.0); Hematocrit 31.1 % (34.9-44.5); Hemoglobin 10.3 g/dL (12.0-15.5); Mean Corpuscular HGB CONC 33.1 g/dL (32.0-36.0); Mean Corpuscular Hemoglobin 33.1 pg (27.0-33.0); Mean Platelet Volume 11.3 fL (7.4-10.4); Platelet Count 135 10x3/uL (150-450); RBC Distribution Width 14.5 % (11.5-14.5); Red Blood Cell (RBC) Count 3.11 10x6/uL (3.90-5.03); White Blood Cell (WBC) Count 8.4 10x3/uL (3.5-10.5)
[2024-03-20 18:04] LABS: INR-International Normal Ratio 1.1; Prothrombin Time 11.9 sec (9.5-12.1)
[2024-03-20 18:09] LABS: ALT (SGPT) 25 U/L (8-55); AST (SGOT) 31 U/L (5-34); Albumin 3.3 g/dL (3.4-4.8); Alkaline Phosphatase 69 U/L (40-110); Anion Gap 14 mmol/L (10-20); BUN (Urea Nitrogen) 53 mg/dL (9.8-20.1); Bilirubin, Total 0.3 mg/dL (0.2-1.2); Calc. Creatinine Clearance 0 mL/min (70-130); Calcium 9.5 mg/dL (7.8-10.44); Carbon Dioxide 20 mmol/L (23-31); Chloride 110 mmol/L (98-107); Estimated GFR 25; Globulin 2.9 g/dL (2.4-3.5); Glucose 132 mg/dL (83-110); Potassium 4.3 mmol/L (3.5-5.1); Protein, Total 6.2 g/dL (5.8-8.1); Sodium 140 mmol/L (136-145)
[2024-03-20] MEDS ORDERED: Acetaminophen 650 MG/20.3 ML UDCUP ONE (18:35)
[2024-03-20] MEDS ORDERED: HYDROcodone/Acetaminophen 5/325 mg Tablet ONE (20:29)
== END 2024-03-20 22:14 | disposition home or self-care (01) ==
LOC: CSHERS 17:24
DX: S00.03XA Contusion of scalp, initial encounter (principal); S20.20XA Contusion of thorax, unspecified, initial encounter; S80.02XA Contusion of left knee, initial encounter; I48.91 Unspecified atrial fibrillation; K21.9 Gastro-esophageal reflux disease without esophagitis; I12.9 Hypertensive chronic kidney disease with stage 1 through stage 4 chronic kidney disease, or unspecified chronic kidney disease; N18.9 Chronic kidney disease, unspecified; Z79.01 Long term (current) use of anticoagulants; Z79.899 Other long term (current) drug therapy; W19.XXXA Unspecified fall, initial encounter
CPT/HCPCS: 36415; 70450; 70486; 71045; 71250; 80053; 85025; 85610

== ENCOUNTER 2024-03-27 23:26 | Emergency (ER) | payer OTHER ==
[2024-03-28 01:44] LABS: #Basophils 0.05 10x3/uL (0.0-0.2); #Eosinphils 0.18 10x3/uL (0.0-0.5); #Monocytes 0.91 10x3/uL (0.0-1.1); #Neutrophils 4.27 10x3/uL (1.5-8.4); %Basophils 0.7 % (0.0-2.0); %Eosinophils 2.6 % (0.0-6.0); %Lymphocytes 21.9 % (18.0-47.0); %Monocytes 13.1 % (0.0-10.0); %Neutrophils 61.4 % (40.0-75.0); Hematocrit 28.7 % (34.9-44.5); Hemoglobin 9.4 g/dL (12.0-15.5); Mean Corpuscular HGB CONC 32.8 g/dL (32.0-36.0); Mean Corpuscular Hemoglobin 33.2 pg (27.0-33.0); Mean Corpuscular Volume 101.4 fL (81.6-98.3); Mean Platelet Volume 11.5 fL (7.4-10.4); Platelet Count 134 10x3/uL (150-450); RBC Distribution Width 14.6 % (11.5-14.5); Red Blood Cell (RBC) Count 2.83 10x6/uL (3.90-5.03)
[2024-03-28 01:52] LABS: INR-International Normal Ratio 1.1; PTT 30.9 sec (22.0-33.0); Prothrombin Time 11.9 sec (9.5-12.1)
[2024-03-28 01:55] LABS: ALT (SGPT) 13 U/L (8-55); AST (SGOT) 22 U/L (5-34); Albumin 3.1 g/dL (3.4-4.8); Alkaline Phosphatase 65 U/L (40-110); Anion Gap 13 mmol/L (10-20); BUN (Urea Nitrogen) 52 mg/dL (9.8-20.1); Bilirubin, Total 0.4 mg/dL (0.2-1.2); Calc. Creatinine Clearance 0 mL/min (70-130); Calcium 9.3 mg/dL (7.8-10.44); Carbon Dioxide 23 mmol/L (23-31); Chloride 109 mmol/L (98-107); Estimated GFR 23; Globulin 2.9 g/dL (2.4-3.5); Glucose 101 mg/dL (83-110); Potassium 4.3 mmol/L (3.5-5.1); Sodium 141 mmol/L (136-145)
[2024-03-28 02:01] LABS: Troponin I Less than 0.010 ng/mL (< 0.028)
[2024-03-28] MEDS ORDERED: Acetaminophen 500 MG TAB ONE (02:13)
[2024-03-28] MEDS ORDERED: Lidocaine 4% Patch ONE (02:53)
== END 2024-03-28 05:45 | disposition home or self-care (01) ==
LOC: CSHERS 23:26
DX: S20.212A Contusion of left front wall of thorax, initial encounter (principal); S00.83XA Contusion of other part of head, initial encounter; I25.10 Atherosclerotic heart disease of native coronary artery without angina pectoris; K21.9 Gastro-esophageal reflux disease without esophagitis; I12.9 Hypertensive chronic kidney disease with stage 1 through stage 4 chronic kidney disease, or unspecified chronic kidney disease; N18.9 Chronic kidney disease, unspecified; I42.9 Cardiomyopathy, unspecified; W10.9XXA Fall (on) (from) unspecified stairs and steps, initial encounter; Y93.89 Activity, other specified; Y92.524 Gas station as the place of occurrence of the external cause; Z95.5 Presence of coronary angioplasty implant and graft; Z79.899 Other long term (current) drug therapy; Z86.718 Personal history of other venous thrombosis and embolism
CPT/HCPCS: 36415; 71250; 74177; 80053; 84484; 85025; 85610; 85730; 93005